=== PATIENT | female | born 1975 | race Caucasian/White ===

== ENCOUNTER 2017-11-23 11:30 | Outpatient (CLI) | payer BC | END 2017-11-23 11:31 | disposition home or self-care (01) | LOC: BICRAD 11:30 | PROVIDERS: ATTEND Family Medicine | DX: J93.9 Pneumothorax, unspecified (principal) | CPT/HCPCS: 71046 ==

== ENCOUNTER 2018-09-03 10:41 | Outpatient (CLI) | payer BC ==
--- NOTE | 2018-09-03 14:57 | ULT ---
THYROID ULTRASOUND: HISTORY: Hyperthyroidism. Graves' disease. COMPARISON: None. COMPARISON: None. TECHNIQUE: Sagittal and transverse imaging of the thyroid gland is performed. FINDINGS: The right isthmus measures 0.2 cm. The right thyroid lobe measures 3.9 x 1.3 x 1.2 cm. The left thy roid lobe measures 1.2 x 1.2 x 3.9 cm. There is diffuse heterogeneity throughout the thyroid gland. There is a solid nodule in the mid pole of the right thyroid lobe measuring 0.5 x 0.8 x 0.5 cm. Some vascular flow is noted. IMPRESSION: 1. Diffuse heterogeneity of the thyroid gland compatible with the patient's history of Graves' disea se. 2. Solid nodule in the right thyroid lobe with a TR score of TR4. Followup imaging in 1 year is rec ommended. POS: JOLIE
== END 2018-09-03 10:42 | disposition home or self-care (01) ==
LOC: SCSULT 10:41
PROVIDERS: ATTEND Internal Medicine
DX: E05.10 Thyrotoxicosis with toxic single thyroid nodule without thyrotoxic crisis or storm (principal); E07.89 Other specified disorders of thyroid
CPT/HCPCS: 76536